=== PATIENT | male | born 1995 | race Asian ===

== ENCOUNTER 2017-04-30 01:02 | Emergency (ER) | payer OTHER ==
[2017-04-30] MEDS ORDERED: Clindamycin CAP* 150 MG PO ONE (01:45)
[2017-04-30] MEDS ORDERED: Ibuprofen TAB* 800 MG PO ONE (01:46)
--- NOTE | 2017-04-30 01:59 | ED ---
Annmarie España Thomas, scribed for Rex Chandler MD on 04/30/17 at 0146 . Skin Complaint - HPI Summary HPI Summary: The patient presents with a swollen, erythematous area to his left inner thigh has been present for the last three days. It is painful when I apply pressure. - History of Current Complaint Chief Complaint: EDRashSkinAbscess Time Seen by Provider: 04/30/17 01:29 Stated Complaint: LEFT THIGH INJURY Hx Obtained From: Patient Onset/Duration: Started Days Ago - 3, Still Present Timing: Constant Onset Severity: Moderate Current Severity: Severe Pain Intensity: 8 Pain Scale Used: 0-10 Numeric Skin Location: Other: - Left inner thigh Character: Pain Aggravating Symptom(s): Other: - Pressure Alleviating Symptom(s): Nothing Associated Signs & Symptoms: Negative - fever - Allergy/Home Medications Allergies/Adverse Reactions: Allergies Allergy/AdvReac Type Severity Reaction Status Date / Time No Known Allergies Allergy Verified 04/30/17 01:11 PMH/Surg Hx/FS Hx/Imm Hx Sensory History: Denies: Hx Legally Blind EENT History: Denies: Hx Deafness Infectious Disease History: No Infectious Disease History: Denies: Traveled Outside the [place] in Last 30 Days - Family History Known Family History: Positive: Other - Patient denies relevant FHx - Social History Alcohol Use: Occasionally Substance Use Type: Reports: None Smoking Status (MU): Never Smoked Tobacco Review of Systems Negative: Fever Positive: Other - Red swollen area to inner thigh All Other Systems Reviewed And Are Negative: Yes Physical Exam - Summary Physical Exam Summary: VITAL SIGNS: Reviewed. GENERAL: Patient is a well-developed and nourished MALE who is lying comfortable in the stretcher. Patient is not in any acute respiratory distress. HEAD AND FACE: No signs of trauma. No ecchymosis, hematomas or skull depressions. No sinus tenderness. EYES: PERRLA, EOMI x 2, No injected conjunctiva, no nystagmus. EARS: Hearing grossly intact. Ear canals and tympanic membranes are within normal limits. MOUTH: Oropharynx within normal limits. NECK: Supple, trachea is midline, no adenopathy, no JVD, no carotid bruit, no c- spine tenderness, neck with full ROM. CHEST: Symmetric, no tenderness at palpation LUNGS: Clear to auscultation bilaterally. No wheezing or crackles. CVS: Regular rate and rhythm, S1 and S2 present, no murmurs or gallops appreciated. ABDOMEN: Soft, non-tender. No signs of distention. No rebound no guarding, and no masses palpated. Bowel sounds are normal. EXTREMITIES: FROM in all major joints, no edema, no cyanosis or clubbing. NEURO: Alert and oriented x 3. No acute neurological deficits. Speech is normal and follows commands. SKIN: There is a three-inch in diameter round area of redness, tenderness, and induration in the left upper inner thigh. There is no fluctuance or discharge. It is consistent with cellulitis. Triage Information Reviewed: Yes Vital Signs On Initial Exam: Initial Vitals Temp Pulse Resp BP Pulse Ox 97.7 F 127 18 150/68 93 04/30/17 01:07 04/30/17 01:07 04/30/17 01:07 04/30/17 01:07 04/30/17 01:07 Vital Signs Reviewed: Yes Diagnostics - Vital Signs Vital Signs Temp Pulse Resp BP Pulse Ox 04/30/17 01:07 97.7 F 127 18 150/68 93 - Laboratory Lab Statement: Any lab studies that have been ordered have been reviewed, and results considered in the medical decision making process. Course/Dx - Course Assessment/Plan: The patient presents with a three-inch in diameter round area of redness, tenderness, and induration in the left upper inner thigh that has been present the last three days. There is no fluctuance or discharge. It is consistent with cellulitis. The patient is discharged home with oral antibiotics. He will follow up with primary care. I instructed him to return if his symptoms worsen. - Diagnoses Provider Diagnoses: Cellulitis Discharge - Discharge Plan Condition: Stable Disposition: HOME Prescriptions: Clindamycin Cap(NF) [Clindamycin Cap 300 mg Cap(NF)] 300 mg PO Q6H #30 cap Ibuprofen TAB* [Motrin TAB* 800 MG] 800 mg PO Q6H PRN #30 tab PRN Reason: Pain Patient Education Materials: Cellulitis (ED) Referrals: [facility] [Outside] - 3 Days Additional Instructions: Follow up with your primary care physician in three days. If you do not have a primary care physician, you can use the [facility]erral service to find one and make an appointment. I have discharged you with oral antibiotics. Take your medication as directed. If your symptoms get worse or you develop new symptoms, return to the emergency department. The documentation as recorded by the Annmarie bernstein Thomas accurately reflects the service I personally performed and the decisions made by me, Rex Chandler MD.
[2017-04-30 02:18] VITALS: BP 159/84
== END 2017-04-30 02:15 | disposition home or self-care (01) ==
LOC: ED 01:02
DX: L03.116 Cellulitis of left lower limb (principal)
CPT/HCPCS: 99282; A9270-GY

== ENCOUNTER 2019-04-17 18:53 | Emergency (ER) | payer OTHER ==
[2019-04-17 19:15] VITALS: BP 158/106
[2019-04-17 19:29] LABS: Influenza B Molecular POSITIVE (Negative)
[2019-04-17] MEDS ORDERED: Oseltamivir CAP* 75 MG CAP PO ONE ×2 (19:48)
[2019-04-17] MEDS ORDERED: Ibuprofen TAB* 600 MG PO ONE (19:49)
--- NOTE | 2019-04-17 19:57 | UC ---
FLU HPI - HPI Summary HPI Summary: STARTED FEELING UNWELL A FEW DAYS AGO. YESTERDAY DEVELOPED FEVER WITH COUGH, CONGESTION, SORE THROAT, FATIGUE AND BODY ACHES. NO FLU SHOT THIS SEASON. - History of Current Complaint Chief Complaint: UCRespiratory Stated Complaint: COUGH, FEVER Time Seen by Provider: 04/17/19 18:57 Hx Obtained From: Patient Onset/Duration: Gradual Onset, Lasting Days, Lasting Weeks Severity Currently: Moderate Severity Initially: Moderate Pain Intensity: 6 Pain Scale Used: 0-10 Numeric Associated Signs & Symptoms: Positive: Fever, Myalgia, Cough, Sore Throat, Nasal Congestion, Headache - Allergy/Home Medications Allergies/Adverse Reactions: Allergies Allergy/AdvReac Type Severity Reaction Status Date / Time No Known Allergies Allergy Verified 04/17/19 19:15 Home Medications: Home Medications Phenylephrine/Dm/Acetaminop/GG [Mucinex Uajm-Lli-Pecfypfods Lq] 177 ml PO Q6HR PRN 04/17/19 [History Confirmed 04/17/19] PMH/Surg Hx/FS Hx/Imm Hx Respiratory History: Asthma - Surgical History Surgical History: None - Family History Known Family History: Positive: Non-Contributory - Social History Alcohol Use: Occasionally Substance Use Type: None Smoking Status (MU): Never Smoked Tobacco Review of Systems All Other Systems Reviewed And Are Negative: Yes Constitutional: Positive: Fever, Chills, Fatigue ENT: Positive: Sore Throat, Nasal Discharge Respiratory: Positive: Cough Cardiovascular: Positive: Negative Gastrointestinal: Positive: Negative Musculoskeletal: Positive: Myalgia Neurological: Positive: Headache Physical Exam Triage Information Reviewed: Yes Appearance: Well-Appearing, No Pain Distress, Well-Nourished Vital Signs: Initial Vital Signs Temp 101.2 F 04/17/19 19:10 Pulse 118 04/17/19 19:10 Resp 16 04/17/19 19:10 BP 158/106 04/17/19 19:10 Pulse Ox 98 04/17/19 19:10 Laboratory Tests 04/17/19 19:26 Influenza B (Rapid) Positive A Eyes: Positive: Conjunctiva Clear ENT: Positive: Hearing grossly normal, Pharynx normal, TMs normal Neck: Positive: Supple, Nontender, No Lymphadenopathy Respiratory Exam: Normal Cardiovascular: Positive: Tachycardia Abdomen Description: Positive: Soft Musculoskeletal: Positive: No Edema Neurological: Positive: Alert Psychological: Positive: Age Appropriate Behavior Skin: Negative: Rashes Flu Course/Dx - Course Course Of Treatment: SWAB POSITIVE FOR INFLUENZA B. TAMIFLU TWICE DAILY FOR 5 DAYS. REST, HYDRATE, OTC MEDS NEEDED. FOLLOW-UP IF NOT IMPROVING EXPECTED. NOTE FOR CLASSES PROVIDED. - Differential Dx/Diagnosis Provider Diagnosis: Influenza B Discharge ED - Sign-Out/Discharge Documenting (check all that apply): Patient Departure All imaging exams completed and their final reports reviewed: No Studies - Discharge Plan Condition: Stable Disposition: HOME Prescriptions: Oseltamivir CAP* [Tamiflu CAP*] 75 mg PO BID #8 cap Patient Education Materials: Influenza (ED) Forms: *School Release [facility] - If Needed Additional Instructions: SWAB POSITIVE FOR INFLUENZA B. TAMIFLU TWICE DAILY FOR 5 DAYS. RX SENT TO [facility]. OTC MEDS NEEDED FOR FEVER, BODY ACHES. STAY WELL HYDRATED AND RESTED. SEEK FOLLOW-UP IF YOU ARE NOT IMPROVING EXPECTED. - Billing Disposition and Condition Condition: STABLE Disposition: Home
== END 2019-04-17 20:13 | disposition home or self-care (01) ==
LOC: MERGE 18:53 → UCEAST 18:53
DX: J10.1 Influenza due to other identified influenza virus with other respiratory manifestations (principal); J45.909 Unspecified asthma, uncomplicated
CPT/HCPCS: 99203; A9270-GY; G0463